=== PATIENT | male | born 1970 | race Caucasian/White ===

== ENCOUNTER 2018-02-28 18:38 | Emergency (ER) | payer OTHER, SELFPAY ==
[2018-02-28 19:12] VITALS: BP 105/70; PULSE 61; RESP 18; TEMP 36.6; O2SAT 97; BMI 31.8
--- NOTE | 2018-02-28 19:19 | ED_ITS ---
HPI - Back Pain/Injury General Chief Complaint: Back Pain/Injury Stated Complaint: Back Pain on left side Time Seen by Provider: 02/28/18 19:18 Source: patient Mode of arrival: ambulatory Limitations: no limitations History of Present Illness HPI Narrative: This 47-year-old male injured his left mid and low back at work today. He states that he was pulling loads off of a pallet on a truck when the wall of boxes behind him fell over onto the palate, knocking a 4 door dresser into his left flank area. He states that this area is painful with moving his trunk. He states that he does not have pain when resting and still. He denies any other injury. He denies any weakness, paresthesia, or pain in the extremities. He denies any hematuria or any other new complaints. He states that he has had occasional back strains in the past but no persistent symptoms or chronic back pain. Related Data Previous Rx's Medication Instructions Recorded cyclobenzaprine 10 mg PO Q8H PRN #10 tab 02/28/18 meloxicam [Mobic] 15 mg PO DAILY #14 tab 02/28/18 tramadol 50 mg PO Q4-6H PRN #10 tab 02/28/18 Allergies Allergy/AdvReac Type Severity Reaction Status Date / Time No Known Drug Allergies Allergy Verified 02/28/18 19:14 Review of Systems Review of Systems All systems reviewed & are unremarkable except as noted in HPI and below PFSH Medical History Acromegaly and pituitary gigantism (Chronic) Surgical History History of pituitary surgery (Resolved) Social History Smoking Status: Current every day smoker Comment: Rare EtOH, no street drugs Exam Narrative Exam Narrative: GENERAL APPEARANCE: Patient sitting comfortably, in no distress. PULMONARY: Lungs clear to auscultation bilaterally CV: Regular rhythm regular without murmur, normal S1 and S2, no S3 or S4 MUSCULOSKELETAL: No point tenderness over the thoracic or lumbar spine. Tender over the left flank, inferior thoracic and superior lumbar, most at the mid to lateral scapular line. Tender with supine to sit. Limited trunk range of motion in all stoddard secondary to tenderness. Normal sit:stand and gait. Lower extremity strength 5/5 bilateral hip flexors, knee extensors, foot plantar flexion. Negative modified straight leg raise NEUROLOGIC: Bilateral patellar and Achilles DTRs 2+ DERMATOLOGIC: No abrasions or ecchymoses Initial Vital Signs Initial Vital Signs: Vital Signs Temperature 98 F 08/28/18 19:12 Pulse Rate 61 02/28/18 19:12 Respiratory Rate 18 02/28/18 19:12 Blood Pressure 105/70 02/28/18 19:12 Pulse Oximetry 97 02/28/18 19:12 Course Additional Information: Patient reported feeling significantly improved at the time of discharge after medications were given. We reviewed his injury paperwork and he did feel like he would be able to return to work tomorrow with modified duty. Forms were completed before he left Orders Ordered: Discontinued Medications Cyclobenzaprine HCl (Flexeril) 10 mg PO NOW ONE Stop: 02/28/18 21:18 Last Admin: 02/28/18 21:31 Dose: 10 mg Cyclobenzaprine HCl (Flexeril 10 Mg Prepack) 1 bottle MISC SEEINSTR ONE Stop: 02/28/18 21:52 Last Admin: 02/28/18 22:00 Dose: 1 bottle Ibuprofen (Advil) 800 mg PO NOW ONE Stop: 02/28/18 19:56 Last Admin: 02/28/18 20:01 Dose: 800 mg Methocarbamol (Robaxin) 750 mg PO NOW ONE Stop: 02/28/18 20:52 Last Admin: 02/28/18 21:31 Dose: Tramadol HCl (Ultram) 50 mg PO NOW ONE Stop: 02/28/18 19:56 Last Admin: 02/28/18 20:01 Dose: 50 mg Tramadol HCl (Ultram 50mg Prepack) 1 bottle MISC SEEINSTR ONE Stop: 02/28/18 21:52 Last Admin: 02/28/18 22:00 Dose: 1 bottle Vital Signs - 8 hr 02/28/18 19:12 02/28/18 22:00 Temperature 98 F Pulse Rate 61 53 L Respiratory Rate 18 14 Blood Pressure 105/70 111/77 Pulse Oximetry 97 97 Discharge Plan Departure Patient Disposition: Home Clinical Impression: Thoracolumbar back pain, Contusion of back, Acute thoracic myofascial strain, Acute myofascial strain of lumbar region Discharge Date/Time: 02/28/18 22:12 Interventions: ED Discharge Assessment Last Done: 02/28/18 22:00 Instructions: DI for Back Strain or Sprain Activity Restrictions/Additional Instructions: You should return if you have any acutely worsening symptoms, or new symptoms such as numbness or weakness in your arms or legs, or difficulty with your bowels or bladder. 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 You can sit and stand and do gentle walking as tolerated, but avoid bending, twisting and lifting as you usually do at work. Take the once a day anti- inflammatory meloxicam starting tomorrow (instead of Motrin or other NSAIDs). You can take the Flexeril (cyclobenzaprine) for muscle spasms as well as tramadol for pain as needed, but remember that these can make you sleepy and do not drive. Please follow up next week with either a primary care or assigned labor and Industries provider to determine whether you are sufficiently improved her whether you may need further treatment before resuming your usual work duties. Prescriptions: New cyclobenzaprine 10 mg tablet 10 mg PO Q8H PRN (Reason: muscle spasm) Qty: 10 RF: 0 meloxicam [Mobic] 15 mg tablet 15 mg PO DAILY Qty: 14 RF: 0 tramadol 50 mg tablet 50 mg PO Q4-6H PRN (Reason: pain) Qty: 10 RF: 0 Referrals: [facility] [Outside]
--- NOTE | 2018-02-28 19:55 | PC.NURSE ---
Pt had direct hit to back with heavy box. It hit him on left flank area. Has urinated since and denies any hematuria. Pain is only present with movement, such as twisting, bending, etc. At rest, his pain is relieved.
[2018-02-28] MEDS: TRAMADOL 50 MG TABLET PO (20:01)
[2018-02-28] MEDS: IBUPROFEN 400 MG TABLET 800 MG PO (20:01)
[2018-02-28] MEDS: CYCLOBENZAPRINE 10 MG TABLET PO (21:31)
[2018-02-28 22:00] VITALS: BP 111/77; PULSE 53; RESP 14; O2SAT 97
[2018-02-28] MEDS: TRAMADOL 50 MG PREPACK 1 BOTTLE MISC (22:00)
[2018-02-28] MEDS: CYCLOBENZAPRINE 10 MG PREPACK 1 BOTTLE MISC (22:00)
== END 2018-02-28 22:12 | disposition home or self-care (01) ==
PROVIDERS: Emergency Provider Internal Medicine
DX: M54.5 Low back pain (principal); M54.6 Pain in thoracic spine; S20.229A Contusion of unspecified back wall of thorax, initial encounter; W22.03XA Walked into furniture, initial encounter; Y99.0 Civilian activity done for income or pay
CPT/HCPCS: 81003; 99282; 99283

== ENCOUNTER 2018-03-08 18:51 | Emergency (ER) | payer OTHER, SELFPAY ==
[2018-03-08 18:53] VITALS: BP 124/82; PULSE 69; RESP 18; TEMP 36.8; O2SAT 97
--- NOTE | 2018-03-08 20:23 | PC.NURSE ---
Pt here for L&I recheck. Was injured at work on 02/28/18 when a large dresser fell and hit him in the left flank. Today he reports he is feeling fine and denies any current symptoms.
--- NOTE | 2018-03-08 20:36 | ED.MEDCLEAR ---
HPI - Medical Clearance General Chief complaint: Medical Clearance Stated complaint: follow up on an LI Time Seen by Provider: 03/08/18 20:35 Source: patient Mode of arrival: ambulatory Limitations: no limitations History of Present Illness HPI Narrative: This 47-year-old gentleman returns requesting a return to work at full duty note. He was seen here last week for back strain that occurred at work. He does a lot of bending and lifting all day. He states that he has been resting and doing light duty. He feels like his back pain is back to baseline now and he can do his regular job. He states that he is not needing any regular pain medication now and just taking as needed. He states that his movement is back to normal. He has not had any new symptoms such as weakness or paresthesia. Previous Rx's Medication Instructions Recorded cyclobenzaprine 10 mg PO Q8H PRN #10 tab 02/28/18 meloxicam [Mobic] 15 mg PO DAILY #14 tab 02/28/18 tramadol 50 mg PO Q4-6H PRN #10 tab 02/28/18 Allergies Allergy/AdvReac Type Severity Reaction Status Date / Time No Known Drug Allergies Allergy Verified 02/28/18 19:14 PFSH Medical History Acromegaly and pituitary gigantism (Chronic) Surgical History History of pituitary surgery (Resolved) Social History Smoking Status: Current every day smoker Exam Narrative Exam Narrative: GENERAL APPEARANCE: Patient sitting comfortably, in no distress. PULMONARY: Lungs clear to auscultation bilaterally CV: Regular rhythm regular without murmur, normal S1 and S2, no S3 or S4 MUSCULOSKELETAL: No point tenderness over the thoracic or lumbar spine. Normal sit to stand and gait. Full AROM of the trunk with minimal tenderness on full trunk rotation and gait. Lower extremity strength 5/5 bilateral hip flexors, knee extensors, foot plantar flexion. Negative modified straight leg raise Initial Vital Signs Initial Vital Signs: Vital Signs Temperature 98.3 F 03/08/18 18:53 Pulse Rate 69 03/08/18 18:53 Respiratory Rate 18 03/08/18 18:53 Blood Pressure 124/82 03/08/18 18:53 Pulse Oximetry 97 03/08/18 18:53 Discharge Plan Departure Patient Disposition: Home Clinical Impression: Acute myofascial strain of lumbar region Discharge Date/Time: 03/08/18 21:05 Interventions: ED Discharge Assessment Last Done: 03/08/18 21:05 Instructions: Exercise May Reduce Risk of Low Back Pain Activity Restrictions/Additional Instructions: Please return if you have any acutely worsening symptoms again. Otherwise, you may return to work at your regular duties. Prescriptions: No Action cyclobenzaprine 10 mg tablet 10 mg PO Q8H PRN (Reason: muscle spasm) Qty: 10 RF: 0 meloxicam [Mobic] 15 mg tablet 15 mg PO DAILY Qty: 14 RF: 0 tramadol 50 mg tablet 50 mg PO Q4-6H PRN (Reason: pain) Qty: 10 RF: 0 Referrals: [facility] [Provider Group] Stand Alone Forms: Work/School Restrictions
[2018-03-08 20:57] VITALS: BP 120/78; PULSE 56; O2SAT 100
== END 2018-03-08 21:05 | disposition home or self-care (01) ==
PROVIDERS: Emergency Provider Internal Medicine
DX: S39.012D Strain of muscle, fascia and tendon of lower back, subsequent encounter (principal); X50.0XXD Overexertion from strenuous movement or load, subsequent encounter; Y99.0 Civilian activity done for income or pay
CPT/HCPCS: 99282

== ENCOUNTER 2018-12-05 21:51 | Emergency (ER) | payer BC, SELFPAY ==
[2018-12-05 22:03] VITALS: BP 139/72; PULSE 63; RESP 16; TEMP 36.8; O2SAT 97
[2018-12-05] MEDS: TRAMADOL 50 MG PREPACK 1 BOTTLE MISC (22:14)
[2018-12-05] MEDS: AMOXICILLIN/CLAV 875/125 MG 1 TAB PO (22:14)
--- NOTE | 2018-12-06 03:21 | ED.SKABFB ---
HPI - Skin/Abscess/Foreign Bdy General Chief complaint: Skin/Abscess/Foreign Body Stated complaint: STATES CELLULITIS RT LOWER LEG Time Seen by Provider: 12/05/18 21:55 Source: patient Mode of arrival: ambulatory Limitations: no limitations History of Present Illness HPI narrative: 48-year-old male smoker presents with a chief complaint of foul-smelling, painful, red infected ulcer to his right medial ankle which has been present, for multiple months. He had been seen by wound care in the past for this and was on antibiotics a few months ago. He denies any systemic findings such as fever, chills nor nausea or vomiting. He denies any injury. He states it has been slowly getting worse MD complaint: lesion Onset (ago): month(s) Tetanus up to date: yes Location: RLE Severity: mild Quality: aching Pain Consistency: constant Relieving factors: none Exacerbating factors: movement Associated symptoms: denies other symptoms Treatments prior to arrival: bandages Related Data Previous Rx's Medication Instructions Recorded amoxicillin-pot clavulanate 1 tab PO BID #14 tab 12/05/18 [Augmentin] tramadol [Ultram] 50 mg PO Q12H PRN #14 tab 12/05/18 Allergies Allergy/AdvReac Type Severity Reaction Status Date / Time No Known Drug Allergies Allergy Verified 12/05/18 22:03 Review of Systems Constitutional Denies chills, Denies fever(s), Denies lethargy and Denies weakness Eyes Denies change in vision, Denies eye discharge, Denies irritation and Denies loss of vision ENT Ears, Nose, Mouth, and Throat: Denies change in voice, Denies neck pain and Denies sore throat Cardiovascular Denies chest pain, Denies irregular heart rhythm, Denies lightheadedness, Denies palpitations, Denies dyspnea, Denies dyspnea on exertion and Denies orthopnea Respiratory Denies cough, Denies dyspnea, Denies dyspnea on exertion and Denies wheezing Gastrointestinal Gastrointestinal: Denies abdominal pain, Denies change in bowel habits, Denies diarrhea, Denies nausea and Denies vomiting Genitourinary Denies hematuria, Denies flank pain, Denies urinary incontinence and Denies urinary urgency Musculoskeletal Denies neck pain Integumentary/Breasts Denies pruritus, Reports non-healing lesions, Denies erythema, Denies rash, Reports skin pain, Reports skin ulcer and Reports wounds Neurologic Denies confusion, Denies loss of vision and Denies weakness Psychiatric Denies anxiety, Denies confusion, Denies depression, Denies homicidal ideation and Denies suicidal ideation Endocrine Denies palpitations Hematologic/Lymphatic Denies easy bruising Allergic/Immunologic Denies wheezing [facility] Medical History Acromegaly and pituitary gigantism (Chronic) Surgical History History of pituitary surgery (Resolved) Social History Smoking Status: Current every day smoker Social History Smoking Status: Current every day smoker Exam Narrative Exam Narrative: GENERAL: 48-year-old male appears stated age, obviously uncomfortable, alert and oriented HEAD: Atraumatic. Normocephalic. No temporal or scalp tenderness. EYES: Pupils equal round and reactive. ENT: Nose without bleeding, purulent drainage or septal hematoma. Throat without erythema, tonsillar hypertrophy or exudate. Uvula midline. Airway patent. NECK: Trachea midline. No JVD or lymphadenopathy. CARDIOVASCULAR: Regular rate and rhythm without murmurs, gallops, or rubs. RESPIRATORY: Clear to auscultation. Breath sounds equal bilaterally. No wheezes, rales, or rhonchi. GASTROINTESTINAL: Abdomen soft, non-tender EXTREMITIES: No clubbing, cyanosis, or edema. No joint tenderness, effusion, or edema noted. BACK: Nontender NEURO: AOx3. SKIN:Foul smelling drainage from poorly healing, infected vascular ulcer on R medial ankle with some surrounding erythema Initial Vital Signs Initial Vital Signs: Vital Signs Temperature 98.3 F 12/05/18 22:03 Pulse Rate 63 12/05/18 22:03 Respiratory Rate 16 12/05/18 22:03 Blood Pressure 139/72 12/05/18 22:03 Pulse Oximetry 97 12/05/18 22:03 Course Orders Ordered: ED Orders 12/05/18 21:57 Wound Culture and Gram Stain Stat Discontinued Medications Amoxicillin/Clavulanate Potassium (Augmentin 875-125 Mg) 1 tab PO NOW ONE Stop: 12/05/18 22:04 Last Admin: 12/05/18 22:14 Dose: 1 tab Tramadol HCl (Ultram 50mg Prepack) 1 bottle MISC SEEINSTR ONE Stop: 12/05/18 22:04 Last Admin: 12/05/18 22:14 Dose: 1 bottle Vital Signs - 8 hr 12/05/18 22:03 Temperature 98.3 F Pulse Rate 63 Respiratory Rate 16 Blood Pressure 139/72 Pulse Oximetry 97 MDM - Skin/Abscess/Foreign Bdy MDM Narrative Medical decision making narrative: Hx of infected vascular ulcer with foul smelling drainage and no systemic complaints. Wound culture obtained, return precautions given Discharge Plan Departure Patient Disposition: Home Clinical Impression: Infected ulcer of skin Qualifiers: Non-pressure ulcer stage: limited to breakdown of skin Qualified Code(s): L98.491 - Non-pressure chronic ulcer of skin of other sites limited to breakdown of skin Discharge Date/Time: 12/05/18 22:16 Interventions: ED Discharge Assessment Last Done: 12/05/18 22:16 Instructions: DI for Wound Infection Activity Restrictions/Additional Instructions: *You have been diagnosed with [infected venous ulcer right ankle] *What to do: *Take medications as directed *Follow up with wound care provider in 2-3 days, call for an appointment. Let them know you were seen in the Emergency Department and that we ask that you be seen in follow up *Return to ER if you should have any new, worsening or concerning symptoms Prescriptions: New tramadol [Ultram] 50 mg tablet 50 mg PO Q12H PRN (Reason: pain) Qty: 14 RF: 0 amoxicillin-pot clavulanate [Augmentin] 875-125 mg tablet 1 tab PO BID Qty: 14 RF: 0 Referrals: Reggie Mccollum MD [Physician] - Stand Alone Forms: Work Release Note
== END 2018-12-05 22:16 | disposition home or self-care (01) ==
PROVIDERS: Emergency Provider Emergency Medicine
DX: L98.491 Non-pressure chronic ulcer of skin of other sites limited to breakdown of skin (principal)
CPT/HCPCS: 87070; 87075; 87077; 87186; 87205; 99282; 99283

== ENCOUNTER → 2018-12-11 13:23 | Outpatient (CLI) | payer BC, SELFPAY | PROVIDERS: Visit Provider Family Medicine | DX: I87.311 Chronic venous hypertension (idiopathic) with ulcer of right lower extremity (principal); L97.811 Non-pressure chronic ulcer of other part of right lower leg limited to breakdown of skin; I89.0 Lymphedema, not elsewhere classified | CPT/HCPCS: 29580; 93922; 99204; 99214 ==

== ENCOUNTER → 2018-12-13 14:09 | Outpatient (CLI) | payer BC, SELFPAY | PROVIDERS: Visit Provider Family Medicine | DX: I87.2 Venous insufficiency (chronic) (peripheral) (principal); L97.812 Non-pressure chronic ulcer of other part of right lower leg with fat layer exposed | CPT/HCPCS: 29580 ==

== ENCOUNTER → 2018-12-22 13:53 | Outpatient (CLI) | payer BC, SELFPAY | PROVIDERS: Visit Provider Family Medicine | DX: I87.311 Chronic venous hypertension (idiopathic) with ulcer of right lower extremity (principal); L97.812 Non-pressure chronic ulcer of other part of right lower leg with fat layer exposed; I89.0 Lymphedema, not elsewhere classified; L08.9 Local infection of the skin and subcutaneous tissue, unspecified | CPT/HCPCS: 11042; 87070; 87075; 87077; 87147; 87186; 87205; 99214 ==

== ENCOUNTER → 2018-12-25 15:15 | Outpatient (CLI) | payer BC, SELFPAY | LOC: WC 15:15 | PROVIDERS: Visit Provider Podiatrist Primary Podiatric Medicine | DX: I87.311 Chronic venous hypertension (idiopathic) with ulcer of right lower extremity (principal); L97.812 Non-pressure chronic ulcer of other part of right lower leg with fat layer exposed | CPT/HCPCS: 97597 ==

== ENCOUNTER → 2019-01-08 09:02 | Outpatient (CLI) | payer BC, SELFPAY | LOC: WC 09:03 | PROVIDERS: Visit Provider Podiatrist Primary Podiatric Medicine | DX: I87.311 Chronic venous hypertension (idiopathic) with ulcer of right lower extremity (principal); L97.811 Non-pressure chronic ulcer of other part of right lower leg limited to breakdown of skin; I89.0 Lymphedema, not elsewhere classified | CPT/HCPCS: 97597 ==

== ENCOUNTER → 2019-01-15 08:49 | Outpatient (CLI) | payer BC, SELFPAY | LOC: WC 08:49 | PROVIDERS: Visit Provider Podiatrist Primary Podiatric Medicine | DX: I87.2 Venous insufficiency (chronic) (peripheral) (principal); L97.811 Non-pressure chronic ulcer of other part of right lower leg limited to breakdown of skin; M79.604 Pain in right leg | CPT/HCPCS: 97597 ==

== ENCOUNTER → 2019-01-22 09:55 | Outpatient (CLI) | payer BC, SELFPAY | PROVIDERS: Visit Provider Podiatrist Primary Podiatric Medicine | DX: I89.0 Lymphedema, not elsewhere classified (principal); I87.2 Venous insufficiency (chronic) (peripheral); L97.811 Non-pressure chronic ulcer of other part of right lower leg limited to breakdown of skin; M79.661 Pain in right lower leg | CPT/HCPCS: 97597 ==

== ENCOUNTER → 2019-01-29 09:02 | Outpatient (CLI) | payer BC, SELFPAY | PROVIDERS: Visit Provider Podiatrist Primary Podiatric Medicine | DX: I87.311 Chronic venous hypertension (idiopathic) with ulcer of right lower extremity (principal); L97.811 Non-pressure chronic ulcer of other part of right lower leg limited to breakdown of skin; I89.0 Lymphedema, not elsewhere classified | CPT/HCPCS: 99213; 99214 ==

== ENCOUNTER 2019-04-04 15:54 | Emergency (ER) | payer BC, SELFPAY ==
[2019-04-04 16:28] VITALS: BP 110/70; PULSE 57; RESP 16; TEMP 36; O2SAT 98; BMI 31.8
[2019-04-04] MEDS: ACETAMINOPHEN 325 MG TABLET 650 MG PO (19:19)
[2019-04-04] MEDS: HYDROCODONE/ACET 5/325 TABLET 1 TAB PO (19:19)
[2019-04-04] MEDS: DOXYCYCLINE HYCLATE 100 MG TABLET PO (19:23)
[2019-04-04 19:24] VITALS: BP 132/80; PULSE 76; RESP 18; O2SAT 98
--- NOTE | 2019-04-04 20:06 | PC.NURSE ---
has h/o non healing wound @ 4 months ago. Now wound has reopened in the same place. Denies fever.
--- NOTE | 2019-04-05 03:27 | ED_ITS ---
HPI - Skin/Abscess/Foreign Bdy <NIMCO Restrepo - Last Filed: 04/05/19 03:43> General Chief complaint: Skin/Abscess/Foreign Body Stated complaint: states open ulcer right ankle, walk in sent him Time Seen by Provider: 04/04/19 18:57 Source: patient Mode of arrival: Ambulatory Limitations: no limitations History of Present Illness HPI narrative: This is a 48-year-old gentleman, smoker, presents to ED with right medial ankle ulcerated infection. Patient reports it had started about a month ago as a small scab which became bigger and draining with increasing redness, pain and swelling. Patient denies fever/chills, nausea or vomiting. Patient states he used to seen by wound care clinic at [facility]. Patient states the pain increases with ambulation. Related Data Previous Rx's Medication Instructions Recorded doxycycline hyclate 100 mg PO BID 7 Days #14 cap 04/04/19 tramadol 50 mg PO Q8H PRN #14 tab 04/04/19 Allergies Allergy/AdvReac Type Severity Reaction Status Date / Time No Known Drug Allergies Allergy Verified 04/04/19 16:32 Review of Systems <NIMCO Restrepo - Last Filed: 04/05/19 03:43> Review of Systems Narrative: General: Denies fever, chills, fatigue, malaise, sweats. HEENT: Denies sinus pain, ear pain, sore throat, difficulty swallowing, dizziness. Respiratory: Denies dyspnea, cough, wheezing, hemoptysis, sputum. Cardiovascular: Denies chest pain, palpitations, orthopnea, edema. Gastrointestinal: Denies nausea, vomiting, abdominal pain, diarrhea, constipation, melena. : Denies dysuria, frequency, incontinence, hematuria, urinary retention. Musculoskeletal: Denies weakness, joint pain or bony pain. Skin: See HPI Neurologic: Denies weakness, headache, numbness, change in speech, confusion, seizures, incoordination. Psychiatric: No concerning psychosocial issues. 12-point review of systems is negative except for those stated above. PFSH <NIMCO Restrepo - Last Filed: 04/05/19 03:43> Medical History Acromegaly and pituitary gigantism (Chronic) Surgical History History of pituitary surgery (Resolved) Social History Smoking Status: Current every day smoker Social History Smoking Status: Current every day smoker Exam <NIMCO Restrepo - Last Filed: 04/05/19 03:43> Narrative Exam Narrative: General appearance: well developed, well nourished, in no acute distress. Head: normocephalic, atraumatic, no scalp lesions, non-tender. Eye: pupil equal, round. EOMI. Nose: nares patent. Oral: mucosa moist. Neck/Thyroid: neck supple, full range of motion, no visible masses. Heart: no clubbing, no cyanosis, no edema. Lungs: Breathing even and unlabored. No stridor. No accessory muscles used. Chest: normal shape and expansion. Abdomen: non-obese, non-distended. Skin: Large size ulcerated medial ankle lesion from infected vascular ulcer. Wound base with exudate and small amount of yellow drainage on ABD pad with mild warmth and erythematous to surrounding area. Neurologic: alert and oriented. Cognitive exam, MEDICAL CODING SPECIALIST and PNS grossly intact on informal exam. Psych: good eye contact, normal affect. Initial Vital Signs Initial Vital Signs: Vital Signs Temperature 96.8 F L 04/04/19 16:28 Pulse Rate 57 L 04/04/19 16:28 Respiratory Rate 16 04/04/19 16:28 Blood Pressure 110/70 04/04/19 16:28 Pulse Oximetry 98 04/04/19 16:28 Extrem Right lower extremity: ankle Details: tenderness Location: of the medial malleolus, swelling Details: diffusely, normal ROM, warmth and other (Erythema around the ulcerated medial right ankle) <Christopher Garcia MD - Last Filed: 04/05/19 07:03> Initial Vital Signs Initial Vital Signs: Vital Signs Temperature 96.8 F L 04/04/19 16:28 Pulse Rate 57 L 04/04/19 16:28 Respiratory Rate 16 04/04/19 16:28 Blood Pressure 110/70 04/04/19 16:28 Pulse Oximetry 98 04/04/19 16:28 Course <NIMCO Restrepo - Last Filed: 04/05/19 03:43> Orders Ordered: Discontinued Medications Acetaminophen (Tylenol) 650 mg PO NOW ONE Stop: 04/04/19 19:09 Last Admin: 04/04/19 19:19 Dose: 650 mg Documented by: TARYN Hydrocodone Bitart/Acetaminophen ([place] 5/325) 1 tab PO NOW ONE Stop: 04/04/19 19:08 Last Admin: 04/04/19 19:19 Dose: 1 tab Documented by: TARYN Bacitracin (Bacitracin) 1 applic TOP NOW ONE Stop: 04/04/19 19:31 Doxycycline Hyclate (Vibramycin) 100 mg PO NOW ONE Stop: 04/04/19 19:08 Last Admin: 04/04/19 19:23 Dose: 100 mg Documented by: TARYN <Christopher Garcia MD - Last Filed: 04/05/19 07:03> Orders Ordered: Discontinued Medications Acetaminophen (Tylenol) 650 mg PO NOW ONE Stop: 04/04/19 19:09 Last Admin: 04/04/19 19:19 Dose: 650 mg Documented by: TARYN Hydrocodone Bitart/Acetaminophen ([place] 5/325) 1 tab PO NOW ONE Stop: 04/04/19 19:08 Last Admin: 04/04/19 19:19 Dose: 1 tab Documented by: TARYN Bacitracin (Bacitracin) 1 applic TOP NOW ONE Stop: 04/04/19 19:31 Doxycycline Hyclate (Vibramycin) 100 mg PO NOW ONE Stop: 04/04/19 19:08 Last Admin: 04/04/19 19:23 Dose: 100 mg Documented by: TARYN MDM - Skin/Abscess/Foreign Bdy <NIMCO Restrepo - Last Filed: 04/05/19 03:43> Differential Diagnosis Differential diagnosis: Likely cellulitis and other (Peripheral vascular disease, vascular insufficiency) Medical Records Attestation: I reviewed the patient's medical records. MDM Narrative Medical decision making narrative: This is 48 you're gentleman, who presents to ED with recurring right medial ankle ulcerated lesion. Patient denies constitutional symptoms. He is requesting referral to wound care clinic for an evaluation and treatment. Patient states this has started as a small scab which became progressively enlarged and draining. Patient has been changing dressing on his own at home. Patient reports increasing surrounding tissue erythema, edema, warmth to touch. Wound culture has been obtained. Patient was discharged to home with doxycycline b.i.d. for 7 day course and to complete a course. A referral to wound care clinic will be faxed. Return precautions were discussed with the patient. Patient advised to elevate his leg during rest and keep the wound clean and dry. Tramadol has been provided for severe pain management and patient advised to use [id number] Tylenol and/or Motrin as needed for pain and fever and narcotic pain medication precautions were discussed with the patient. Return precautions were discussed with the patient and patient agrees with treatment plan and verbalized understanding. Discharge Plan Departure Patient Disposition: Home Clinical Impression: Non-pressure chronic ulcer of skin of other sites limited to breakdown of skin Discharge Date/Time: 04/04/19 20:10 Instructions: DI for Cellulitis -- Adult Activity Restrictions/Additional Instructions: You have been diagnosed with [chronic non-pressure ulcerated ankle infection]. What to do: *Take your medications as directed. You are medicated with 1st dose of doxycycline in ED. Please continue for 7 day course twice a day. *Follow up with your primary care provider in 2-3 days, call for an appointment. Let them know you were seen in the ED and that we asked you to be seen in follow up. *Return to ED if you have any new, worsening, or concerning symptoms, such as [fever, chills, nausea or vomiting, increasing pain/redness/swelling, weakness/tingling/numbness on your extremity or any acute concerns]. Prescriptions: New doxycycline hyclate 100 mg capsule 100 mg PO BID 7 Days Qty: 14 RF: 0 tramadol 50 mg tablet 50 mg PO Q8H PRN (Reason: pain) Qty: 14 RF: 0 Referrals: Reggie Mccollum MD [Physician] -
== END 2019-04-04 20:10 | disposition home or self-care (01) ==
PROVIDERS: Emergency Provider Nurse Practitioner Family
DX: L97.311 Non-pressure chronic ulcer of right ankle limited to breakdown of skin (principal)
CPT/HCPCS: 87070; 87075; 87077; 87147; 87186; 87205; 99282; 99283

== ENCOUNTER → 2019-04-06 09:56 | Outpatient (CLI) | payer BC, SELFPAY | LOC: WC 09:58 | PROVIDERS: Visit Provider Family Medicine | DX: I87.2 Venous insufficiency (chronic) (peripheral) (principal); L97.811 Non-pressure chronic ulcer of other part of right lower leg limited to breakdown of skin; R60.0 Localized edema | CPT/HCPCS: 29581; 99214 ==

== ENCOUNTER → 2019-04-12 11:04 | Outpatient (CLI) | payer BC, SELFPAY | PROVIDERS: Visit Provider Family Medicine | DX: I87.2 Venous insufficiency (chronic) (peripheral) (principal); L97.811 Non-pressure chronic ulcer of other part of right lower leg limited to breakdown of skin; I89.0 Lymphedema, not elsewhere classified; B95.1 Streptococcus, group B, as the cause of diseases classified elsewhere | CPT/HCPCS: 11042; 87070; 87075; 87077; 87147; 87176; 87186; 87205; 99213 ==

== ENCOUNTER → 2019-04-20 10:07 | Outpatient (CLI) | payer BC, SELFPAY | PROVIDERS: Visit Provider Family Medicine | DX: I87.2 Venous insufficiency (chronic) (peripheral) (principal); L97.818 Non-pressure chronic ulcer of other part of right lower leg with other specified severity; R60.0 Localized edema | CPT/HCPCS: 99213 ==

== ENCOUNTER → 2019-05-10 10:13 | Outpatient (CLI) | payer BC, SELFPAY | PROVIDERS: Visit Provider Family Medicine | DX: I87.2 Venous insufficiency (chronic) (peripheral) (principal); L97.811 Non-pressure chronic ulcer of other part of right lower leg limited to breakdown of skin | CPT/HCPCS: 11042 ==

== ENCOUNTER → 2019-05-17 08:45 | Outpatient (CLI) | payer BC, SELFPAY | LOC: WC 08:45 | PROVIDERS: Visit Provider Family Medicine | DX: I87.2 Venous insufficiency (chronic) (peripheral) (principal); L97.818 Non-pressure chronic ulcer of other part of right lower leg with other specified severity; I89.0 Lymphedema, not elsewhere classified; R60.0 Localized edema | CPT/HCPCS: 11042; 29581 ==

== ENCOUNTER → 2019-05-25 11:48 | Outpatient (CLI) | payer BC, SELFPAY | LOC: WC 11:49 | PROVIDERS: Visit Provider Family Medicine | DX: I87.2 Venous insufficiency (chronic) (peripheral) (principal); L97.811 Non-pressure chronic ulcer of other part of right lower leg limited to breakdown of skin; I89.0 Lymphedema, not elsewhere classified; R60.0 Localized edema | CPT/HCPCS: 97597 ==

== ENCOUNTER 2019-07-06 20:16 | Emergency (ER) | payer BC, SELFPAY ==
[2019-07-06 20:24] VITALS: BP 102/79; PULSE 62; RESP 20; TEMP 36.6; O2SAT 99
--- NOTE | 2019-07-06 21:02 | ED_ITS ---
HPI - Skin/Abscess/Foreign Bdy General Chief complaint: Skin/Abscess/Foreign Body Stated complaint: Ulcer on R ankle Time Seen by Provider: 07/06/19 20:51 Source: patient Mode of arrival: Ambulatory Limitations: no limitations History of Present Illness HPI narrative: 48-year-old male smoker with history of infected skin ulcers presents with a chief complaint of a painful lesion on his right lateral ankle which has been there for at least the past few days but more likely a few weeks. He denies any injury. He denies any systemic findings such as fever, chills nor nausea or vomiting. He complains of pain which is worse with motion or palpation and improves with rest. He denies any significant drainage. He has a history of a vascular ulcer on his right medial ankle which had been evaluated by Wound Care and treated with antibiotics which is largely healed, he states this lateral lesions started soon after the other when healed. MD complaint: rash and lesion Onset (ago): week(s) Tetanus up to date: yes Location: RLE Severity: moderate Quality: burning Pain Consistency: constant Relieving factors: none Exacerbating factors: palpation and movement Context: none Treatments prior to arrival: bandages Related Data Previous Rx's Medication Instructions Recorded tramadol 50 mg PO Q8H PRN #14 tab 04/04/19 doxycycline monohydrate 100 mg PO BID 10 Days #20 cap 07/06/19 Allergies Allergy/AdvReac Type Severity Reaction Status Date / Time No Known Drug Allergies Allergy Verified 04/04/19 16:32 Review of Systems Constitutional Constitutional: Denies chills, Denies fatigue, Denies fever(s), Denies frequent falls, Denies lethargy and Denies weakness Eyes Eyes: Denies change in vision, Denies eye discharge, Denies irritation and Denies loss of vision ENT Ears, Nose, Mouth, and Throat: Denies change in voice, Denies dizziness, Denies neck pain, Denies sore throat and Denies throat swelling Cardiovascular Cardiovascular: Denies chest pain, Denies irregular heart rhythm, Denies lightheadedness, Denies palpitations, Denies dyspnea, Denies dyspnea on exertion and Denies orthopnea Respiratory Respiratory: Denies cough, Denies dyspnea, Denies dyspnea on exertion and Denies wheezing Gastrointestinal Gastrointestinal: Denies abdominal pain, Denies change in bowel habits, Denies diarrhea, Denies nausea and Denies vomiting Genitourinary Genitourinary: Denies hematuria, Denies flank pain, Denies urinary incontinence and Denies urinary urgency Musculoskeletal Musculoskeletal: Denies back pain, Denies muscle weakness, Denies neck pain, Denies numbness and Denies tingling Integumentary/Breasts Skin/Breast: Denies pruritus, Denies erythema, Denies rash, Reports skin pain, Reports skin ulcer and Denies wounds Neurologic Neurologic: Denies behavioral changes, Denies confusion, Denies dizziness, Denies frequent falls, Denies loss of vision, Denies numbness, Denies tingling and Denies weakness Psychiatric Psychiatric: Denies anxiety, Denies behavioral changes, Denies confusion, Denies depression, Denies homicidal ideation and Denies suicidal ideation Endocrine Endocrine: Denies fatigue, Denies flushing and Denies palpitations Hematologic/Lymphatic Hematologic/Lymphatic: Denies easy bruising Allergic/Immunologic Allergic/Immunologic: Denies urticaria, Denies throat swelling and Denies wheezing Patient History Medical History Acromegaly and pituitary gigantism (Chronic) Surgical History History of pituitary surgery (Resolved) Social History Smoking Status: Current every day smoker Smoking Status: Current every day smoker alcohol intake frequency: a few times a month Substance Use Type: does not use Exam Narrative Exam Narrative: GEN: AOx3 and in mild distress EYES: Pupils are equal, round, and reactive to light and accommodation. Extraoccular muscles are intact bilaterally. There is no subconjunctival hemorrhage or exudate. CHEST: Lungs are clear to auscultation bilaterally and free of wheezes, rales, or rhonchi. Heart rate is regular rhythm, there are no murmurs, clicks, rubs, or gallops. There is no chest wall tenderness. ABD: Abdomen is soft and nontender. There is no guarding or rebound. Bowel sounds are normal in all 4 quadrants. There is no mass or organomegaly. EXT: Full painless ROM of all extremities with no loss of sensation or strength. SKIN: Bilateral lower extremities with signs of chronic venous stasis. There is skin breakdown and ulceration of the right lateral ankle without any obvious drainage or exudate. It is tender to palpate and there is some minimal surrounding erythema Initial Vital Signs Initial Vital Signs: Vital Signs Temperature 97.9 F 07/06/19 20:24 Pulse Rate 62 07/06/19 20:24 Respiratory Rate 20 07/06/19 20:24 Blood Pressure 102/79 07/06/19 20:24 Pulse Oximetry 99 07/06/19 20:24 Course Orders Ordered: Discontinued Medications Hydrocodone Bitart/Acetaminophen (Vicodin 5/325 Prepack) 1 bottle MISC SEEINSTR ONE Stop: 07/06/19 21:10 Last Admin: 07/06/19 21:15 Dose: 1 bottle Documented by: ARCELIA Doxycycline Hyclate (Vibramycin) 100 mg PO NOW ONE Stop: 07/06/19 21:10 Last Admin: 07/06/19 21:15 Dose: 100 mg Documented by: ARCELIA Vital Signs Vital signs: Vital Signs - 8 hr 07/06/19 20:24 Temperature 97.9 F Pulse Rate 62 Respiratory Rate 20 Blood Pressure 102/79 Pulse Oximetry 99 MDM - Skin/Abscess/Foreign Bdy MDM Narrative Medical decision making narrative: Reassuring exam, no signs of sepsis. Very local findings. Culture obtained. Referral to wound care and contact given for Dr. Ayala ([facility]) for follow up. Return precautions given and questions answered to his apparent satisfaction. Discharge Plan Departure Patient Disposition: Home Clinical Impression: Infected ulcer of skin Qualifiers: Non-pressure ulcer stage: limited to breakdown of skin Qualified Code(s): L98.491 - Non-pressure chronic ulcer of skin of other sites limited to breakdown of skin Discharge Date/Time: 07/06/19 21:31 Instructions: DI for Cellulitis -- Adult Activity Restrictions/Additional Instructions: *You have been diagnosed with [infected ulcer a right ankle] *What to do: *Take medications as directed: [facility] ([place], [place]) at your request *Follow up with your primary care provider in 2-3 days, call for an appointment. Let them know you were seen in the Emergency Department and that we ask that you be seen in follow up. Also, I've included contact information for the wound care whom you will need to see in follow up. *Return to ER if you should have any new, worsening or concerning symptoms Prescriptions: New doxycycline monohydrate 100 mg capsule 100 mg PO BID 10 Days Qty: 20 RF: 0 No Action tramadol 50 mg tablet 50 mg PO Q8H PRN (Reason: pain) Qty: 14 RF: 0 Referrals: Isidro Ayala MD [Physician] - Reggie Mccollum MD [Physician] -
[2019-07-06] MEDS: DOXYCYCLINE HYCLATE 100 MG TABLET PO (21:15)
[2019-07-06] MEDS: HYDROCODONE/ACET 5/325 PREPACK 1 BOTTLE MISC (21:15)
== END 2019-07-06 21:31 | disposition home or self-care (01) ==
PROVIDERS: Emergency Provider Emergency Medicine
DX: L97.311 Non-pressure chronic ulcer of right ankle limited to breakdown of skin (principal)
CPT/HCPCS: 87070; 87077; 87147; 87186; 87205; 99282; 99283

== ENCOUNTER 2019-10-07 20:44 | Emergency (ER) | payer BC, SELFPAY ==
[2019-10-07 21:18] VITALS: BP 119/65; PULSE 65; RESP 14; TEMP 36.6; O2SAT 98
--- NOTE | 2019-10-08 05:17 | ED_ITS ---
HPI - Skin/Abscess/Foreign Bdy General Chief complaint: Skin/Abscess/Foreign Body Stated complaint: sore throat, rash, states +covid Time Seen by Provider: 10/07/19 20:53 Source: patient Mode of arrival: Ambulatory Limitations: no limitations History of Present Illness HPI narrative: 49M smoker with known COVID-19 presents with family whom is also being seen and is also positive. Patient has no fever, cough, SOB, N/V/D but does have a mild sore throat. He thought hed be checked out since he is here with someone else. He also complains of a non-pruritic rash in his groin since this morning. He has no trouble urinating or having BM. He denies testicular pain or penile drainage. MD complaint: rash Onset (ago): hour(s) Tetanus up to date: yes Location: genitals Severity: mild Severity scale (1-10): 1 Pain Consistency: now resolved Relieving factors: none Exacerbating factors: none Context: none Associated symptoms: other Treatments prior to arrival: none Related Data Previous Rx's Medication Instructions Recorded tramadol 50 mg PO Q8H PRN #14 tab 04/04/19 doxycycline monohydrate 100 mg PO BID 10 Days #20 cap 10/07/19 Allergies Allergy/AdvReac Type Severity Reaction Status Date / Time No Known Drug Allergies Allergy Verified 04/04/19 16:32 Review of Systems Constitutional Constitutional: Denies chills, Denies fatigue, Denies fever(s), Denies frequent falls, Denies lethargy and Denies weakness Eyes Eyes: Denies change in vision, Denies eye discharge, Denies irritation and Denies loss of vision ENT Ears, Nose, Mouth, and Throat: Denies change in voice, Denies dizziness, Denies neck pain, Denies sore throat and Denies throat swelling Cardiovascular Cardiovascular: Denies chest pain, Denies irregular heart rhythm, Denies lightheadedness, Denies palpitations, Denies dyspnea, Denies dyspnea on exertion and Denies orthopnea Respiratory Respiratory: Denies cough, Denies dyspnea, Denies dyspnea on exertion and Denies wheezing Gastrointestinal Gastrointestinal: Denies abdominal pain, Denies change in bowel habits, Denies diarrhea, Denies nausea and Denies vomiting Genitourinary Genitourinary: Denies hematuria, Denies flank pain, Denies urinary incontinence and Denies urinary urgency Musculoskeletal Musculoskeletal: Denies back pain, Denies muscle weakness, Denies neck pain, Denies numbness and Denies tingling Integumentary/Breasts Skin/Breast: Denies pruritus, Denies erythema, Denies rash and Denies wounds Neurologic Neurologic: Denies behavioral changes, Denies confusion, Denies dizziness, Denies frequent falls, Denies loss of vision, Denies numbness, Denies tingling and Denies weakness Psychiatric Psychiatric: Denies anxiety, Denies behavioral changes, Denies confusion, Denies depression, Denies homicidal ideation and Denies suicidal ideation Endocrine Endocrine: Denies fatigue, Denies flushing and Denies palpitations Hematologic/Lymphatic Hematologic/Lymphatic: Denies easy bruising Allergic/Immunologic Allergic/Immunologic: Denies urticaria, Denies throat swelling and Denies wheezing Patient History Medical History Acromegaly and pituitary gigantism (Chronic) Surgical History History of pituitary surgery (Resolved) Social History Smoking Status: Current every day smoker Smoking Status: Current every day smoker alcohol intake frequency: a few times a month Substance Use Type: does not use Exam Narrative Exam Narrative: GEN: AOx3 and in mild distress EYES: Pupils are equal, round, and reactive to light and accommodation. Extraoccular muscles are intact bilaterally. There is no subconjunctival hemorrhage or exudate. CHEST: Lungs are clear to auscultation bilaterally and free of wheezes, rales, or rhonchi. Heart rate is regular rhythm, there are no murmurs, clicks, rubs, or gallops. There is no chest wall tenderness. ABD: Abdomen is soft and nontender. There is no guarding or rebound. Bowel sounds are normal in all 4 quadrants. There is no mass or organomegaly. EXT: Full painless ROM of all extremities with no loss of sensation or strength. SKIN: Warm, pink, and dry. No erythema or rash Initial Vital Signs Initial Vital Signs: Vital Signs Temperature 97.9 F 10/07/19 21:18 Pulse Rate 65 10/07/19 21:18 Respiratory Rate 14 10/07/19 21:18 Blood Pressure 119/65 10/07/19 21:18 Pulse Oximetry 98 10/07/19 21:18 Course Vital Signs Vital signs: Vital Signs - 8 hr 10/07/19 21:18 Temperature 97.9 F Pulse Rate 65 Respiratory Rate 14 Blood Pressure 119/65 Pulse Oximetry 98 Discharge Plan Departure Patient Disposition: Home Clinical Impression: 2019 novel coronavirus detected, Rash and nonspecific skin eruption Discharge Date/Time: 10/07/19 21:56 Instructions: DI for Rash Activity Restrictions/Additional Instructions: *You have been diagnosed with [nonspecific groin rash, ortega virus] *What to do: *Take medications as directed *Follow up with your primary care provider in 2-3 days, call for an appointment. Let them know you were seen in the Emergency Department and that we ask that you be seen in follow up *Return to ER if you should have any new, worsening or concerning symptoms *You have been diagnosed with [ coronavirus] *What to do: * per recommendations from the CDC and the [facility] Department of Health * stay home except to get medical care. Restrict activities outside your home, except for getting medical care. Do not go to work, school, or public areas. Avoid using public transportation, ride sharing, or taxis. * separate yourself from other people in your home. * call ahead before visiting your doctor * Wear a facemask * Cover your coughs and sneezes * Clean your hands often * Avoid sharing household items * Clean all high-touch services every day * Monitor your symptoms and seek prompt medical attention if your illness is worsening, particularly with difficulty in breathing. Discussed continuing home isolation * for individuals with symptoms who are confirmed or suspected cases of COVID-19 and are directed to care for themselves at home, discontinue home isolation under the following conditions: 1. At least 72 hours have passed since recovery, defined as resolution of fever without the use of fever reducing medications, and improvement in respiratory symptoms (cough, shortness of breath) AND, 2. At least 7 days have passed since symptoms 1st appeared Individuals with laboratory confirmed COVID-19 who have not had any symptoms may discontinue home isolation when at least 7 days have passed since the date of their 1st COVID-19 diagnostic test and have had no subsequent illness Prescriptions: New doxycycline monohydrate 100 mg capsule 100 mg PO BID 10 Days Qty: 20 RF: 0 No Action tramadol 50 mg tablet 50 mg PO Q8H PRN (Reason: pain) Qty: 14 RF: 0
== END 2019-10-07 21:56 | disposition home or self-care (01) ==
PROVIDERS: Emergency Provider Emergency Medicine
DX: U07.1 COVID-19 (principal); R21 Rash and other nonspecific skin eruption
CPT/HCPCS: 99281; 99282

== ENCOUNTER 2020-08-09 14:53 | Emergency (ER) | payer BC, SELFPAY ==
[2020-08-09 14:57] VITALS: BP 129/87; PULSE 77; RESP 15; TEMP 36.5; O2SAT 98; BMI 31.8
--- NOTE | 2020-08-09 15:11 | ED.WOUNDLAC ---
HPI - Wound/Laceration General Chief Complaint: Wound/Laceration Stated Complaint: irriation on lower back Time Seen by Provider: 08/09/20 15:05 Source: patient Mode of arrival: Ambulatory Limitations: no limitations History of Present Illness HPI narrative: 49-year-old male who is here for evaluation of a redness and irritation to his lower back/upper buttocks area. He states that has been like this for the past couple days. He states there has been quite a bit of drainage from the area to the point that it is swelling his jeans. He is tried hemorrhoid cream over the area. He states that it itches. He has not had any fevers. No problems with bowel movements. Has never anything like this in the past. Related Data Previous Rx's Medication Instructions Recorded tramadol 50 mg PO Q8H PRN #14 tab 04/04/19 doxycycline hyclate 100 mg PO BID 7 Days #14 cap 08/09/20 Allergies Allergy/AdvReac Type Severity Reaction Status Date / Time No Known Drug Allergies Allergy Verified 08/09/20 15:03 Review of Systems Constitutional Constitutional: Denies fever(s) and Denies headache(s) ENT Ears, Nose, Mouth, and Throat: Denies vertigo and Denies headache(s) Musculoskeletal Musculoskeletal: Denies arthralgias and Denies myalgias Integumentary/Breasts Comments: Redness and irritation injury in to the lower back Neurologic Neurologic: Denies vertigo and Denies headache(s) Hematologic/Lymphatic On Anticoagulants: No Allergic/Immunologic Allergic/Immunologic: Denies urticaria Patient History Medical History Acromegaly and pituitary gigantism Surgical History History of pituitary surgery Social History Smoking Status: Current every day smoker Smoking Status: Current every day smoker alcohol intake frequency: a few times a month Substance Use Type: does not use Exam Initial Vital Signs Initial Vital Signs: Vital Signs Temperature 97.7 F 08/09/20 14:57 Pulse Rate 77 08/09/20 14:57 Respiratory Rate 15 08/09/20 14:57 Blood Pressure 129/87 08/09/20 14:57 Pulse Oximetry 98 08/09/20 14:57 Const General: cooperative and comfortable Skin Other: Patient has redness and drainage in ulceration to the inter gluteal cleft superior buttocks and lower back. There is no abscess felt on the exam. The does appear to be some vesicles however they are not exactly grouped however the expected HSV to look. Does have surrounding erythema Extrem General: capillary refill normal Psych Appearance: grossly normal and well kempt Course Orders Ordered: ED Orders 08/09/20 15:30 Wound Culture and Gram Stain Stat Vital Signs Vital signs: Vital Signs - 8 hr 08/09/20 14:57 Temperature 97.7 F Pulse Rate 77 Respiratory Rate 15 Blood Pressure 129/87 Pulse Oximetry 98 MDM - Wound/Laceration MDM Narrative Medical decision making narrative: Patient does have what appears to be cellulitis in his lower back and supra gluteal cleft. It does not give me the exact appearance of a pilonidal cyst. There is ulcerations of the adjoining skin of the supra gluteal cleft. There is induration around this area however do not feel that it is an abscess. I was unable to express any specific purulent material from the area. Patient states he is not concerned about HSV. I was somewhat concerned about this because he states that it is itching and there were some vesicles however I do agree that it is not clumped however would expect HSV to look. Both viral and bacterial wound cultures were obtained. Will start the patient on antibiotics. We did discuss using barrier cream like would would be use for a diaper rash. Patient was given return precautions and follow-up instructions. He expressed understanding and agreement. Discharge Plan Departure Patient Disposition: Home Clinical Impression: Cellulitis Instructions: DI for Cellulitis -- Adult Activity Restrictions/Additional Instructions: Cultures were obtained today and we will contact you of we need to change any antibiotics. A prescription for antibiotics was electronically transmitted to [facility] per your request. I recommend you contact [phone]. This is the health client resource specialist here at the hospital and they can help you establish a primary provider. Return to the emergency department for any new or worsening symptoms. Prescriptions: New doxycycline hyclate 100 mg capsule 100 mg PO BID 7 Days Qty: 14 RF: 0 No Action tramadol 50 mg tablet 50 mg PO Q8H PRN (Reason: pain) Qty: 14 RF: 0 Stand Alone Forms: Work Release Note
--- NOTE | 2020-08-09 15:38 | PC.NURSE ---
Pt seen and cultured by provider. Defer to provider assessment
== END 2020-08-09 15:39 | disposition home or self-care (01) ==
PROVIDERS: Emergency Provider Emergency Medicine
DX: L03.317 Cellulitis of buttock (principal)
CPT/HCPCS: 87070; 87075; 87077; 87147; 87186; 87205; 87252; 99281; 99282

== ENCOUNTER 2020-12-05 21:00 | Emergency (ER) | payer BC, SELFPAY ==
[2020-12-05 21:23] VITALS: BP 138/78; PULSE 73; RESP 18; TEMP 37.7; O2SAT 98; BMI 33.8
--- NOTE | 2020-12-05 21:30 | ED_ITS ---
HPI - Nausea/Vomiting/Diarrhea General Chief complaint: Nausea/Vomiting/Diarrhea Stated complaint: THROWING UP NOT EATING DIZZY Time Seen by Provider: 12/05/20 21:08 Source: patient Mode of arrival: Wheelchair Limitations: no limitations History of Present Illness HPI Narrative: 50-year-old male daily smoker presents with multiple complaints including mild headache and dizziness, not eating or drinking, low-grade fever, dry and hacking cough as well as urinary frequency, urgency and dysuria. He denies any vomiting or diarrhea. He denies any abdominal pain. He denies any rash or break in the skin. He denies any new medications or dietary change. MD complaint: nausea Description of Vomiting: food contents Description of Diarrhea: none Associated Abdominal Pain: Yes Severity: mild Relieving factors: none Exacerbating factors: none Associated symptoms: fever/chills, malaise and nausea/vomiting Related Data Previous Rx's Medication Instructions Recorded tramadol 50 mg PO Q8H PRN #14 tab 04/04/19 ciprofloxacin HCl 500 mg PO BID #14 tab 12/05/20 Allergies Allergy/AdvReac Type Severity Reaction Status Date / Time No Known Drug Allergies Allergy Verified 12/05/20 21:09 Review of Systems Constitutional Constitutional: Denies chills, Denies fatigue, Denies fever(s), Denies frequent falls, Denies lethargy and Reports weakness Eyes Eyes: Denies change in vision, Denies eye discharge, Denies irritation and Denies loss of vision ENT Ears, Nose, Mouth, and Throat: Denies change in voice, Denies dizziness, Denies neck pain, Denies sore throat and Denies throat swelling Cardiovascular Cardiovascular: Denies chest pain, Denies irregular heart rhythm, Denies lightheadedness, Denies palpitations, Denies dyspnea, Denies dyspnea on exertion and Denies orthopnea Respiratory Respiratory: Denies cough, Denies dyspnea, Denies dyspnea on exertion and Denies wheezing Gastrointestinal Gastrointestinal: Denies abdominal pain, Denies change in bowel habits, Denies diarrhea, Denies nausea and Denies vomiting Musculoskeletal Musculoskeletal: Denies neck pain and Denies numbness Integumentary/Breasts Skin/Breast: Denies pruritus, Denies erythema, Denies rash and Denies wounds Neurologic Neurologic: Denies behavioral changes, Denies confusion, Denies dizziness, Dash es frequent falls, Denies loss of vision, Denies numbness and Reports weakness Psychiatric Psychiatric: Denies anxiety, Denies behavioral changes, Denies confusion, Denies depression, Denies homicidal ideation and Denies suicidal ideation Endocrine Endocrine: Denies fatigue, Denies flushing and Denies palpitations Hematologic/Lymphatic Hematologic/Lymphatic: Denies easy bruising Allergic/Immunologic Allergic/Immunologic: Denies urticaria, Denies throat swelling and Denies wheezing Patient History Medical History (Updated 12/05/20 @ 22:27 by Robert Hill DO) Acromegaly and pituitary gigantism Surgical History History of pituitary surgery Social History Smoking Status: Current every day smoker Smoking Status: Current every day smoker alcohol intake frequency: a few times a month Substance Use Type: does not use Exam Narrative Exam Narrative: GENERAL: [50] year old patient appears stated age. Well- developed patient, in mild distress. HEAD: Atraumatic. Normocephalic. EYES: Pupils equal round and reactive. Extraocular motions intact. No scleral icterus. No injection or drainage. ENT: Nose without bleeding, purulent drainage. Throat without erythema, tonsillar hypertrophy or exudate. Airway patent. NECK: Trachea midline. Non tender CARDIOVASCULAR: Regular rate and rhythm without murmurs, gallops, or rubs. RESPIRATORY: Clear to auscultation. Breath sounds equal bilaterally. No wheezes, rales, or rhonchi. GASTROINTESTINAL: Abdomen soft, non-tender, nondistended. EXTREMITIES: No edema or joint tenderness. BACK: Nontender without deformity or crepitance. No flank tenderness. NEURO: AOx3. SKIN: No rash or erythema of visible areas Initial Vital Signs Initial Vital Signs: Vital Signs Temperature 99.9 F H 12/05/20 21:23 Pulse Rate 73 12/05/20 21:23 Respiratory Rate 18 12/05/20 21:23 Blood Pressure 138/78 12/05/20 21:23 Pulse Oximetry 98 12/05/20 21:23 Course Orders Ordered: ED Orders 12/05/20 21:10 COVID19 -Nasal swab/Pre-Proc Stat 12/05/20 21:36 XR acute abdomen series Stat 12/05/20 21:38 Complete Blood Count AUTO DIFF Stat Comprehensive Metabolic Panel Stat 12/05/20 21:57 Urine Culture Stat Urine Microscopic Stat Discontinued Medications Sodium Chloride (Normal Saline 0.9%) 1,000 mls @ 1,000 mls/hr IV BOLUS ONE Stop: 12/05/20 22:29 Last Infusion: 12/05/20 22:43 Dose: 0 mls/hr Documented by: Admin: 12/05/20 21:36 Dose: 1,000 mls/hr Documented by: LONDON Levofloxacin (Levofloxacin 250 Mg Tablet) 500 mg PO NOW ONE Stop: 12/05/20 22:28 Last Admin: 12/05/20 22:43 Dose: 500 mg Documented by: ROCAEL Ondansetron HCl (Ondansetron 4 Mg/2 Ml Inj) 4 mg IV NOW ONE Stop: 12/05/20 21:31 Last Admin: 12/05/20 21:37 Dose: 4 mg Documented by: L[place]ON Vital Signs Vital signs: Vital Signs - 8 hr 12/05/20 21:23 12/05/20 22:43 Temperature 99.9 F H Pulse Rate 73 67 Respiratory Rate 18 18 Blood Pressure 138/78 113/68 Pulse Oximetry 98 98 MDM - Nausea/Vomiting/Diarrhea Lab Data Result diagrams: 12/05/20 21:38 12/05/20 21:38 Labs: Lab Results 12/05/20 12/05/20 12/05/20 Range/Units 21:10 21:38 21:38 WBC 8.1 (4.5-11.0) X10^3/uL RBC 3.99 L (4.5-5.9) X10^6/uL Hgb 13.4 L (13.5-17.5) g/dL Hct 38.7 L (41-53) % MCV 97.1 (80-100) fL MCH 33.5 (26-34) PG MCHC 34.6 (30-36) % RDW 13.0 (11.6-14.8) % Plt Count 147 L (150-400) X10^3/uL Neut % (Auto) 83.2 H (50-75) % Lymph % (Auto) 9.4 L (25-40) % [place] % (Auto) 6.7 (3-14) % Eos % (Auto) 0.1 L (2-4) % Baso % (Auto) 0.6 (0-2) % Neut # (Auto) 6800 (4916-3384) /uL Lymph # (Auto) 800 L (1860-2763) /uL [place] # (Auto) 500 (0-900) /uL Eos # (Auto) 0 (0-450) /uL Baso # (Auto) 0 (0-100) /uL Sodium 132 L (137-145) mmol/L Potassium 4.1 (3.4-5.1) mmol/L Chloride 99 (98-107) mmol/L Carbon Dioxide 26 (22-32) mmol/L BUN 17 (9-20) mg/dL Creatinine 0.96 (0.66-1.25) mg/dL Estimated GFR > 60.0 (>60) mL/min BUN/Creatinine Ratio 17.7 (6-22) Glucose 169 H (70-100) mg/dL Calcium 8.5 (8.4-10.2) mg/dL Total Bilirubin 0.5 (0.2-1.3) mg/dL AST 30 (17-59) IU/L ALT 33 (<50) IU/L Alkaline Phosphatase 93 (38-126) U/L Total Protein 6.8 (6.3-8.2) g/dL Albumin 3.7 (3.5-5.0) g/dL Globulin 3.1 (1.7-4.1) g/dL Albumin/Globulin Ratio 1.2 (1.0-2.8) Urine RBC (0-5/HPF) Urine WBC (0-5/HPF) Urine Bacteria (None) Ur Culture Indicated? SARS-CoV-2 (PCR) Negative (Negative) 12/05/20 Range/Units 21:57 WBC (4.5-11.0) X10^3/uL RBC (4.5-5.9) X10^6/uL Hgb (13.5-17.5) g/dL Hct (41-53) % MCV (80-100) fL MCH (26-34) PG MCHC (30-36) % RDW (11.6-14.8) % Plt Count (150-400) X10^3/uL Neut % (Auto) (50-75) % Lymph % (Auto) (25-40) % [place] % (Auto) (3-14) % Eos % (Auto) (2-4) % Baso % (Auto) (0-2) % Neut # (Auto) (3644-9371) /uL Lymph # (Auto) (7094-8262) /uL [place] # (Auto) (0-900) /uL Eos # (Auto) (0-450) /uL Baso # (Auto) (0-100) /uL Sodium (137-145) mmol/L Potassium (3.4-5.1) mmol/L Chloride (98-107) mmol/L Carbon Dioxide (22-32) mmol/L BUN (9-20) mg/dL Creatinine (0.66-1.25) mg/dL Estimated GFR (>60) mL/min BUN/Creatinine Ratio (6-22) Glucose (70-100) mg/dL Calcium (8.4-10.2) mg/dL Total Bilirubin (0.2-1.3) mg/dL AST (17-59) IU/L ALT (<50) IU/L Alkaline Phosphatase (38-126) U/L Total Protein (6.3-8.2) g/dL Albumin (3.5-5.0) g/dL Globulin (1.7-4.1) g/dL Albumin/Globulin Ratio (1.0-2.8) Urine RBC 1-5/hpf (0-5/HPF) Urine WBC >100/hpf H (0-5/HPF) Urine Bacteria Many (>30) H (None) Ur Culture Indicated? Specimen cultured SARS-CoV-2 (PCR) (Negative) Urine Dip Bedside Urine Glucose Negative Bedside Urine Bilirubin - Negative Bedside Urine Ketone - Negative Urine Specific [place] 1.025 Bedside Urine Occult Blood ++ Bedside Urine pH 6.0 Bedside Urine Protein + 30 Bedside Urine Urobilinogen +/- 1mg Bedside Urine Nitrite + Positive Bedside Urine Leukocytes ++ 125 Esterase Discharge Plan Departure Patient Disposition: Home Clinical Impression: Acute UTI Instructions: DI for Urinary Tract Infection (UTI) Activity Restrictions/Additional Instructions: *You have been diagnosed with [acute urinary tract infection] *What to do: *Please continue to take your regular medications as directed. [x ] New medication prescriptions sent to your pharmacy: [[facility] ] [ ] New medication written as a paper prescription [ ] No new medications given *Please follow up with your primary care provider in 2-3 days, call for an appointment. Let them know you were seen in the Emergency Department and that we ask that you be seen in follow up. We will electronically transmit a record of today's note if your PCP is in our system *If you do not have a primary care provider please contact the [facility] Resource line at [phone]. They will ask some questions about your medical history and help get you set up with a doctor in the community. *Return to Emergency Department if you should have any new, worsening or concerning symptoms, such as [fever greater than 101 F, shaking chills, worsening pain, persistent vomiting or other bothersome symptoms] Prescriptions: New ciprofloxacin HCl 500 mg tablet 500 mg PO BID Qty: 14 RF: 0 No Action tramadol 50 mg tablet 50 mg PO Q8H PRN (Reason: pain) Qty: 14 RF: 0
[2020-12-05 21:35] LABS: COVID19 -Nasal RAPID Negative (Negative)
[2020-12-05] MEDS: SODIUM CHLORIDE 0.9% 1,000 ML 1000 ML IV (21:36)
--- NOTE | 2020-12-05 21:36 | DI.RAD.S_ITS ---
PROCEDURE: XR ACUTE ABDOMEN SERIES INDICATIONS: cough, fever, vomiting TECHNIQUE: One view chest and two views of the abdomen were acquired. COMPARISON: None. FINDINGS: Surgical changes and devices: None. Chest: Lungs are clear. Heart size is normal. No pleural effusions. No pneumoperitoneum. Abdomen: Bowel gas pattern is normal. No suspicious calcifications. Visualized solid organ contours appear normal. Bones: No suspicious bony lesions. IMPRESSION: No acute finding. Dictated by: Gunnar Neal M.D. on 12/05/2020 at 22:05 Approved by: Gunnar Neal M.D. on 12/05/2020 at 22:05
[2020-12-05] MEDS: ONDANSETRON 4 MG/2 ML INJ IV (21:37)
[2020-12-05 21:53] LABS: Add Manual Diff / Slide Review NO; Basophils Absolute Auto 0 /uL (0-100); Basophils Percent Auto 0.6 % (0-2); Eosinophils Absolute Auto 0 /uL (0-450); Eosinophils Percent Auto 0.1 % (2-4); Hematocrit 38.7 % (41-53); Hemoglobin 13.4 g/dL (13.5-17.5); Lymphocytes Absolute Auto 800 /uL (1100-4500); Lymphocytes Percent Auto 9.4 % (25-40); Mean Corpuscular HGB Conc 34.6 % (30-36); Mean Corpuscular Hemoglobin 33.5 PG (26-34); Mean Corpuscular Volume 97.1 fL (80-100); Monocytes Absolute Auto 500 /uL (0-900); Monocytes Percent Auto 6.7 % (3-14); Neutrophils Absolute Auto 6800 /uL (1500-7000); Neutrophils Percent Auto 83.2 % (50-75); Platelet Count 147 X10^3/uL (150-400); Red Blood Cell Count 3.99 X10^6/uL (4.5-5.9); White Blood Cell Count 8.1 X10^3/uL (4.5-11.0)
[2020-12-05 22:03] LABS: Alanine Aminotransferase 33 IU/L (<50); Albumin 3.7 g/dL (3.5-5.0); Albumin Globulin Ratio 1.2 (1.0-2.8); Alkaline Phosphatase 93 U/L (38-126); Aspartate Aminotransferase 30 IU/L (17-59); BUN Creatinine Ratio 17.7 (6-22); Bilirubin Total 0.5 mg/dL (0.2-1.3); Blood Urea Nitrogen 17 mg/dL (9-20); Calcium 8.5 mg/dL (8.4-10.2); Carbon Dioxide 26 mmol/L (22-32); Chloride 99 mmol/L (98-107); Estimated Glomerular Filt Rate > 60.0 mL/min (>60); Globulin 3.1 g/dL (1.7-4.1); Glucose 169 mg/dL (70-100); HEMOLYSIS < 15 (0-50); Potassium 4.1 mmol/L (3.4-5.1); Sodium 132 mmol/L (137-145); Total Protein 6.8 g/dL (6.3-8.2)
[2020-12-05 22:22] LABS: Bacteria Urine Many (>30); RBC Urine 1-5/HPF (0-5/HPF); WBC Urine >100/HPF (0-5/HPF)
[2020-12-05 22:23] LABS: Culture Indicated Urine Specimen Cultured
[2020-12-05 22:43] VITALS: BP 113/68; PULSE 67; RESP 18; O2SAT 98
[2020-12-05] MEDS: levoFLOXacin 250 MG TABLET 500 MG PO (22:43)
== END 2020-12-05 22:52 | disposition home or self-care (01) ==
PROVIDERS: Emergency Provider Emergency Medicine
DX: N39.0 Urinary tract infection, site not specified (principal); R42 Dizziness and giddiness; R50.9 Fever, unspecified; R05 Cough; R30.0 Dysuria; Z20.822 Contact with and (suspected) exposure to COVID-19
CPT/HCPCS: 36415; 74022; 80053; 81003; 81015; 85025; 87077; 87086; 87186; 87635; 96361; 96374; 99284; C9803; J2405

== ENCOUNTER 2021-11-01 15:50 | Emergency (ER) | payer BC, SELFPAY ==
[2021-11-01 16:00] VITALS: BP 143/77; PULSE 75; RESP 18; TEMP 36.6; O2SAT 97
--- NOTE | 2021-11-01 16:03 | DI.RAD.S_ITS ---
PROCEDURE: XR KNEE RT 3V INDICATIONS: pain, no known injury TECHNIQUE: 3 views of the knee were acquired. COMPARISON: None. FINDINGS: Bones: No fractures or dislocations. No suspicious bony lesions. There is mild medial femorotibial joint space narrowing seen, with associated remodeling changes including subchondral sclerosis and osteophyte formation along the jointline. On the sunrise view, there is mild patellofemoral joint space narrowing seen. Osteophyte formation can be seen along the margins of the patella. Soft tissues: There is a mild joint effusion seen. Calcification can be seen along the joint lines, which is attributed to meniscal calcification, although differential diagnosis includes chondrocalcinosis. IMPRESSION: Mild joint effusion and degenerative changes, without acute abnormality seen on these plain films. If it would be helpful for clinical management decision making, please consider a dedicated, scheduled knee MRI for further evaluation (assuming that there is no contraindication). Dictated by: Isael Maurer M.D. on 11/01/2021 at 15:48 Approved by: Isael Maurer M.D. on 11/01/2021 at 15:50
--- NOTE | 2021-11-01 17:29 | ED_ITS ---
HPI - Extremity Injury (Lower) General Chief Complaint: Extremity Injury, Lower Stated Complaint: Knee pain Time Seen by Provider: 11/01/21 17:19 Source: patient Mode of arrival: Ambulatory History of Present Illness HPI Narrative: 51-year-old male who is here for evaluation of right knee pain. He states he has had off and on right knee pain for several weeks/months although it has worsened over the past several days/weeks. Does take Tylenol for the discomfort. No fevers. No redness. Reports the pain is all over his knee. He states he has periods of time where he feels like his knee is unstable and that it hyperextends. There has been no specific trauma. Has not been evaluated for the symptoms prior to arrival. He has tried [id number] knee brace is at home however given the size of his legs none of the knee braces will fit up to his knee. Related Data Previous Rx's Medication Instructions Recorded tramadol 50 mg tablet 50 mg PO Q8H PRN #14 tab 04/04/19 ciprofloxacin HCl 500 mg tablet 500 mg PO BID #14 tab 12/05/20 meloxicam 15 mg tablet (Mobic) 15 mg PO DAILY PRN #30 tab 11/01/21 Allergies Allergy/AdvReac Type Severity Reaction Status Date / Time No Known Drug Allergies Allergy Verified 12/05/20 21:09 Review of Systems Constitutional Constitutional: Reports as per HPI and Reports system reviewed and no additional complaints, except as documented Musculoskeletal Musculoskeletal: Reports system reviewed and no additional complaints, except as documented and Reports as per HPI Integumentary/Breasts Skin/Breast: Reports system reviewed and no additional complaints, except as documented and Reports as per HPI Neurologic Neurologic: Reports system reviewed and no additional complaints, except as documented and Reports as per HPI Patient History Medical History (Updated 11/01/21 @ 17:34 by Tyler Madrigal DO) Acromegaly and pituitary gigantism Surgical History History of pituitary surgery Social History Smoking Status: Current every day smoker Smoking Status: Current every day smoker alcohol intake frequency: a few times a month Substance Use Type: does not use Exam Initial Vital Signs Initial Vital Signs: Vital Signs Temperature 97.8 F 11/01/21 16:00 Pulse Rate 75 05/01/22 16:00 Respiratory Rate 18 11/01/21 16:00 Blood Pressure 143/77 H 11/01/21 16:00 Pulse Oximetry 97 11/01/21 16:00 HENMT Head: normal to inspection and normocephalic Skin General: no rashes or lesions noted Neuro General: patient alert and patient awake Sensory Exam: no sensory deficits noted Extrem Other: Patient does not have any tenderness to palpation along the hamstrings, mediolateral joint line, fibular head or patella or quadriceps tendon. He is able to do a straight leg raise. ACL MCL PCL and LCL are all intact with functional testing. Course Orders Ordered: ED Orders 11/01/21 16:03 XR knee RT 3V Stat Vital Signs Vital signs: Vital Signs - 8 hr 11/01/21 16:00 Temperature 97.8 F Pulse Rate 75 Respiratory Rate 18 Blood Pressure 143/77 H Pulse Oximetry 97 MDM - Extremity Injury (Lower) Imaging Data Extremity x-ray #1: Radiologist's Impression: [address] [address] XRay Report Signed Patient: Harshal Decker II MR#: [id number] : 1970 Acct:[id number] Age/Sex: 51 / M Date of Service: 11/01/21 Loc: ED Accession Number: [id number] ?? Procedure: XR knee RT 3V Ordering Provider: Tyler Madrigal D.O. PROCEDURE:? XR KNEE RT 3V ? INDICATIONS:? pain, no known injury ? TECHNIQUE:? 3 views of the knee were acquired.? ? COMPARISON:? None. ? FINDINGS:? ? Bones:? No fractures or dislocations.? No suspicious bony lesions.? ? There is mild medial femorotibial joint space narrowing seen, with associated remodeling changes including subchondral sclerosis and osteophyte formation along the jointline.? On the sunrise view, there is mild patellofemoral joint space narrowing seen. Osteophyte formation can be seen along the margins of the patella. ? Soft tissues:? There is a mild joint effusion seen.? Calcification can be seen along the joint lines, which is attributed to meniscal calcification, although differential diagnosis includes chondrocalcinosis. ? ? IMPRESSION:? Mild joint effusion and degenerative changes, without acute abnormality seen on these plain films. ? If it would be helpful for clinical management decision making, please consider a dedicated, scheduled knee MRI for further evaluation (assuming that there is no contraindication).? ? ? Dictated by: Isael Maurer M.D. on 11/01/2021 at 15:48 ? ? Approved by: Isael Maurer M.D. on 11/01/2021 at 15:50 MDM Narrative Medical decision making narrative: Patient is neurovascularly intact. There is no indication of any gout or other inflammation or other infection. No fractures noted on the x-rays. I do suspect that this is arthritis. We did discuss the use of conservative measures to include an Josh bandage to take the place of a knee brace. Will start him on anti-inflammatories. He was given return precautions. He expressed under standing and agreement. Discharge Plan Departure Patient Disposition: Home Clinical Impression: Knee pain, right, Arthritis Instructions: DI for Osteoarthritis, How To Perform RICE (Rest, Ice, Compress, Elevate) Activity Restrictions/Additional Instructions: Use the medication as directed as needed. Use the Josh bandage as needed as well. Contact your primary doctor for a follow-up. Return to the emergency department for any new or worsening symptoms. Prescriptions: New meloxicam [Mobic] 15 mg tablet 15 mg PO DAILY PRN (Reason: Joint pain) Qty: 30 0RF No Action tramadol 50 mg tablet 50 mg PO Q8H PRN (Reason: pain) Qty: 14 0RF ciprofloxacin HCl 500 mg tablet 500 mg PO BID Qty: 14 0RF Referrals: Miscellaneous,Doctor, [Primary Care Provider] -
== END 2021-11-01 17:42 | disposition home or self-care (01) ==
PROVIDERS: Emergency Provider Emergency Medicine
DX: M25.561 Pain in right knee (principal)
CPT/HCPCS: 73562; 99283

== ENCOUNTER 2023-03-11 02:40 | Emergency (ER) | payer BC, SELFPAY ==
[2023-03-11 02:44] VITALS: BP 147/85; PULSE 72; RESP 18; TEMP 36.4; O2SAT 98; BMI 32.3
--- NOTE | 2023-03-11 02:52 | DI.RAD.S_ITS ---
PROCEDURE: XR NASAL BONES MIN 3V INDICATIONS: eval for fracture TECHNIQUE: 3 views of the nasal bones acquired. COMPARISON: None. FINDINGS: Bones: Subtle irregularity at the right nasal bone on the frontal projection. However, this is not confirmed on the lateral views. This could be artifactual. No dislocations. Nasal septum is midline. Normal nasociliary nerve grooves are noted. Soft tissues: No suspicious soft tissue calcifications. IMPRESSION: Question right nasal bone nondisplaced fracture. Consider CT maxillofacial for further evaluation. This report is concordant with the overnight preliminary interpretation. Dictated by: Lee Gardner M.D. on 03/11/2023 at 9:10 Approved by: Lee Gardner M.D. on 03/11/2023 at 9:12
--- NOTE | 2023-03-11 03:00 | ED.GENADULT ---
HPI - General Adult General Chief complaint: Nasal Problem Stated complaint: possible broken nose Time Seen by Provider: 03/11/23 02:43 Source: patient Mode of arrival: Ambulatory History of Present Illness HPI narrative: 52-year-old male who is here for evaluation of a potential nasal bone fracture. Patient states that 1 week ago he stated that he was head-butted by his dog. He thought that maybe that was the time when he broke his nose but had not had any real symptoms until this evening when he states he blew his nose and he had a fairly sudden onset of some swelling. He can breathe out of each nostril. He reports no other injuries from the event. He states that he has broken his nose in the past. Related Data Previous Rx's Medication Instructions Recorded tramadol 50 mg tablet 50 mg PO Q8H PRN pain #14 tabs 04/04/19 ciprofloxacin HCl 500 mg tablet 500 mg PO BID #14 tabs 12/05/20 meloxicam 15 mg tablet (Mobic) 15 mg PO DAILY PRN Joint pain #30 11/01/21 tabs Allergies Allergy/AdvReac Type Severity Reaction Status Date / Time No Known Drug Allergies Allergy Verified 12/05/20 21:09 Review of Systems Eyes Eyes: Reports system reviewed and no additional complaints, except as documented ENT Ears, Nose, Mouth, and Throat: Reports system reviewed and no additional complaints, except as documented Integumentary/Breasts Skin/Breast: Reports system reviewed and no additional complaints, except as documented Patient History Medical History Acromegaly and pituitary gigantism Surgical History History of pituitary surgery Social History Smoking Status: Current every day smoker Smoking Status: Current every day smoker alcohol intake frequency: a few times a month Substance Use Type: does not use Exam Initial Vital Signs Initial Vital Signs: Vital Signs Temperature 97.6 F 03/11/23 02:44 Pulse Rate 72 03/11/23 02:44 Respiratory Rate 18 03/11/23 02:44 Blood Pressure 147/85 H 03/11/23 02:44 Pulse Oximetry 98 03/11/23 02:44 Oxygen Delivery Method Room Air 03/11/23 02:44 HENMT Head: normal to inspection and normocephalic Nose: nares normal and No epistaxis HENMT Other: Discomfort with palpation over the nasal bones. There is no deviation Eyes Other: No discomfort or irregularity noted over the orbital rims Skin Other: Mild swelling without bruising over the bridge of the nose Course Orders Ordered: ED Orders 03/11/23 02:52 XR nasal bones min 3V Stat Vital Signs Vital signs: Vital Signs - 8 hr 03/11/23 02:44 Temperature 97.6 F Pulse Rate 72 Respiratory Rate 18 Blood Pressure 147/85 H Pulse Oximetry 98 Oxygen Delivery Method Room Air Medical Decision Making Imaging Data Nasal x-ray: Radiologist's Impression: Mild cortical irregularity involving the right nasal bone suggesting a possible nondisplaced fracture MDM Narrative Medical decision making narrative: He does have mild swelling over the bridge of his nose. He can breathe out of each nostril. There is no deviation noted. X-ray shows potential nasal bone fracture. No indication for emergent surgical consultation. Discussed with the patient. Will discharge home. He was given return precautions. He expressed understanding and agreement. Discharge Plan Departure Patient Disposition: Home Clinical Impression: Fracture of nasal bone Instructions: DI for Nose Fracture Activity Restrictions/Additional Instructions: You can use ice over your nose to try to help with any swelling. You need to try has best as possible not to blow your nose hard as this may cause the swelling to worsen. Unfortunately there is not much more to do and you just need to let the fracture heal on its own. Return to the emergency department for new symptoms. Prescriptions: No Action tramadol 50 mg tablet 50 mg PO Q8H PRN (Reason: pain) Qty: 14 0RF ciprofloxacin HCl 500 mg tablet 500 mg PO BID Qty: 14 0RF meloxicam [Mobic] 15 mg tablet 15 mg PO DAILY PRN (Reason: Joint pain) Qty: 30 0RF Referrals: Miscellaneous,Doctor, MD [Primary Care Provider] - Stand Alone Forms: Patient Portal/API
[2023-03-11 04:07] VITALS: BP 132/70; PULSE 74; RESP 18; TEMP 36.6; O2SAT 98
== END 2023-03-11 04:08 | disposition home or self-care (01) ==
PROVIDERS: Emergency Provider Emergency Medicine
DX: S02.2XXA Fracture of nasal bones, initial encounter for closed fracture (principal); W22.8XXA Striking against or struck by other objects, initial encounter
CPT/HCPCS: 70160; 99281; 99283